=== PATIENT | female | born 1965 | race African-American/Black ===

== ENCOUNTER → 2017-02-16 | Outpatient (CLI) | payer BC ==
[~2017-02-16] MED LIST: HYDR25TA4 PO; MULT-506 PO; PXL/10 PO
== END | disposition home or self-care (01) ==
LOC: C.RDSM 09:11
PROVIDERS: ATTEND Family Medicine
DX: M25.562 Pain in left knee (principal)

== ENCOUNTER → 2017-05-23 | Outpatient (CLI) | payer BC ==
[~2017-05-23] MED LIST changes: -PXL/10 PO
--- NOTE | 2017-05-24 13:41 | MAMMOGRAPHY REPORT ---
BILATERAL DIGITAL SCREENING MAMMOGRAM TOMOSYNTHESIS WITH CAD: 05/23/2017 CLINICAL HISTORY: Routine screening. Patient has no complaints. TECHNIQUE: Breast tomosynthesis in addition to standard 2D mammography was performed. Current study was also evaluated with a Computer Aided Detection (CAD) system. COMPARISON: Comparison is made to exams dated: 12/08/2014 mammogram, 11/22/2011 mammogram, 11/08/2011 m ammogram - [facility], 12/24/2008, and 08/13/2004 mammogram - [facility]. BREAST COMPOSITION: The tissue of both breasts is heterogeneously dense, which may obscure small mas ses. FINDINGS: There is stable asymmetry in the lateral left breast. A few benign-appearing right breast microcalcifications. No suspicious mass, architectural distortion or cluster of suspicious microcalc ifications is seen. IMPRESSION: ACR BI-RADS CATEGORY 1: NEGATIVE There is no mammographic evidence of malignancy. A 1 year screening mammogram is recommended. The pa tient will receive written notification of the results. Approximately 10% of breast cancers are not detected with mammography. A negative mammographic report should not delay biopsy if a clinically suggestive mass is present. Loni Zarco M.D. ay/:05/23/2017 16:53:28 Truck Dispatcher: Merle CENTENO)(Anum)(BD), [facility] letter sent: Normal 1/2 BI-RADS Code: ACR BI-RADS Category 1: Negative
== END | disposition home or self-care (01) ==
LOC: C.MAMM 15:52
PROVIDERS: ATTEND Obstetrics & Gynecology
DX: Z12.31 Encounter for screening mammogram for malignant neoplasm of breast (principal)

== ENCOUNTER → 2017-08-10 | Outpatient (CLI) | payer BC ==
[2017-08-10 12:23] LABS: URINE APPEARANCE CLEAR (CLEAR); URINE BILIRUBIN NEG (NEG); URINE COLOR YELLOW; URINE NITRITE NEG (NEG); URINE PH 5.5 (4.5-7.5); URINE SPECIFIC GRAVITY 1.012 (1.000-1.030); UROBILINOGEN NEG (NEG)
[2017-08-10 12:34] LABS: MANUAL MICROSCOPIC REQUIRED? NO; REVIEW REQ? NO
== END | disposition home or self-care (01) ==
LOC: C.LAB1850 09:49
PROVIDERS: ATTEND Physician Assistant
DX: R35.0 Frequency of micturition (principal)

== ENCOUNTER 2024-04-26 12:11 | Inpatient (IN) ==
--- NOTE | 2024-04-26 13:19 | Emergency Department Note ---
ED Provider Note History of Present Illness Chief Complaint: Hip Pain Stated Complaint: HIP & LEG PAIN, Time Seen by Provider: 04/26/24 13:17 This is a 58-year-old female accompanied by her niece who presents to the emergency department via EMS with severe pain starting in her left buttock radiating down her leg. She feels like her leg is numb and she feels he is not getting enough blood supply. Patient states that she felt like she may have mildly injured this 3 weeks ago while doing some kickboxing exercises at home. She was having some mild discomfort especially in the mornings in her buttock area but nothing like she is experiencing today. Today when she woke up she had severe pain and could not move so called the ambulance. She took some ibuprofen without any relief. Patient states that her pain seems to get worse when she keeps her leg still and she feels an urge to move her leg. She cannot find a comfortable position. She states that the leg feels weak. She denies any loss of bowel or bladder function, saddle anesthesia, fever, chills. No history of any back problems or back surgery. No history of DVT. No abdominal pain or urinary symptoms. Home Medications Medication Instructions Recorded Confirmed Type Advil 1 tab PO UD PRN Pain 04/26/24 04/26/24 History Tylenol 1 tab PO UD PRN Pain 04/26/24 04/26/24 History Allergies Allergy/AdvReac Type Severity Reaction Status Date / Time No Known Allergies Allergy Unverified 04/26/24 16:19 Past Med/Surg History Problem List (Updated 04/26/24 @ 18:30 by MAGAN Izquierdo) Ambulatory dysfunction (Acute) Hypertension Hypokalemia (Acute) Lumbar back pain with radiculopathy affecting left lower extremity (Acute) Social History Smoking Status: Never smoker Feels Safe at Home: Yes Physical Exam Vital Signs Vital Signs - 24 hr 04/26/24 12:28 04/26/24 14:00 04/26/24 14:19 Temperature 97.9 F Temperature Source Skin Pulse Rate 73 68 Pulse Rate [Apical] 69 Pulse Rhythm Regular Respiratory Rate 16 18 18 Respiratory Effort / Characteristics Non-Labored Non-Labored Spontaneous Respiratory Depth Normal Normal Blood Pressure 168/108 H Blood Pressure [Left Arm] 187/107 H Blood Pressure Mean 128 Blood Pressure Mean [Left Arm] 133 Pulse Oximetry 96 100 100 Oxygen Delivery Method Room Air Room Air Room Air Sepsis Recent Fever Within 48 Hours No Sepsis New/Unexplained Change in Mental Status N/A Sepsis Action Taken by Nursing No Action Required CONSTITUTIONAL: Well developed, well nourished, appears to be in significant pain, writhing, cannot find a comfortable position, yelling in pain. NECK: Full active range of motion. RESPIRATORY: Breathing unlabored and symmetric. Lungs clear to auscultation bilaterally. No wheeze, rales, or rhonchi. CARDIOVASCULAR: Regular rate and rhythm. No murmurs, rubs, or gallops. DP pulses strong, 2+ bilaterally. ABDOMEN: Normal bowel sounds. Soft, nontender, no peritonitis. MUSCULOSKELETAL: Relatively unable to perform a thorough examination due to the patient writhing on the stretcher however there is no midline lumbar thoracic muscular tenderness. There is some mild tenderness in the left buttock musculature. Patient with severe pain with a straight leg raise on the left. There is no obvious swelling or skin color changes in the left leg compared to the contralateral. Palpation of the left medial leg elicits pain in the left buttock. SKIN: [place], warm, dry. Bilateral feet are warm and well-perfused. NEUROLOGIC: Awake, alert, oriented. No sensory deficits in bilateral lower extremities. Strength 5+ in bilateral lower extremities. Course Administered Medications Potassium Chloride (K Zaki / Wtr) 10 meq in 100 mls @ 100 mls/hr IV Q1H GLADIS Stop: 04/26/24 18:44 Last Admin: 04/26/24 18:00 Dose: 100 mls/hr Documented By: AY Discontinued Medications Dexamethasone Sodium Phosphate (DexamethasonePf 10 Mg/Ml Vial) 10 mg IV NOW ONE Stop: 04/26/24 13:29 Last Admin: 04/26/24 14:06 Dose: 10 mg Documented By: EVIE Diazepam (Diazepam 5 Mg/Ml 10ml Vial) 2 mg IV NOW STA Stop: 04/26/24 13:29 Last Admin: 04/26/24 14:06 Dose: 2 mg Documented By: EVIE Sodium Chloride (Nss) 1,000 mls @ 999 mls/hr IV .Q1H1M ONE Stop: 04/26/24 17:26 Last Admin: 04/26/24 18:01 Dose: 999 mls/hr Documented By: VALDEZ Ioversol (Optiray 320 100ml) 94 ml IV ONCE ONE Stop: 04/26/24 15:05 Last Admin: 04/26/24 15:04 Dose: 94 ml Documented By: OSITO Lidocaine (Lidocaine 5% 1 Patch) 1 patch TD NOW STA Stop: 04/26/24 13:29 Last Admin: 04/26/24 14:11 Dose: 1 patch Documented By: EVIE Morphine Sulfate (Morphine Sulfate 4 Mg/Ml 1 Ml Carp\Vial) 4 mg IV NOW STA Stop: 04/26/24 13:29 Last Admin: 04/26/24 14:06 Dose: 4 mg Documented By: EVIE Medical Decision Making Differential Diagnosis Lumbar strain, muscle spasm, myofascial pain, sciatica, disc bulge, disc herniation, radiculopathy, transverse myelitis, cauda equina syndrome, ureterolithiasis, vascular injury, DVT, among other pathology Laboratory Data 04/26/24 13:49 04/26/24 13:49 Lab Results 04/26/24 04/26/24 Range/Units 13:49 13:50 WBC 7.08 (4.8-10.8) K/ul RBC 5.79 H (4.20-5.40) M/uL Hgb 14.9 (12.0-16.0) g/dl Hct 44.4 (37.0-47.0) % MCV 76.7 L (80.0-100.0) fL MCH 25.7 (25.0-34.0) pg MCHC 33.6 (32.0-36.0) g/dL RDW Std Deviation 37.7 (36.4-46.3) fL RDW Coeff of Mary 13.8 (11.5-14.5) % Plt Count 246 (130-400) K/uL MPV 11.3 (9.4-12.4) fL Immature Gran % (Auto) 0.4 % Neut % (Auto) 84.8 % Lymph % (Auto) 10.9 % [place] % (Auto) 3.8 % Eos % (Auto) 0.0 % Baso % (Auto) 0.1 % Neut # (Auto) 6.00 (1.40-6.50) K/uL Lymph # (Auto) 0.77 L (1.20-3.40) K/uL [place] # (Auto) 0.27 (0.11-0.59) K/uL Eos # (Auto) 0.00 (0.00-0.50) K/uL Baso # (Auto) 0.01 (0.00-0.20) K/uL Immature Gran # (Auto) 0.03 (0.01-0.20) K/uL Sodium 136 (136-145) mmol/L Potassium 2.8 L (3.5-5.1) mmol/L Chloride 100 (98-107) mmol/L Carbon Dioxide 21 (21-32) mmol/L Anion Gap 15 H (3-11) BUN 13 (6-23) mg/dl Creatinine 0.79 (0.6-1.2) mg/dl Est Cr Clr Drug Dosing Not Reportable Est GFR ( Amer) 94.3 ml/min Est GFR (Non-Af Amer) 81.4 ml/min BUN/Creatinine Ratio 16.5 (10-20) Glucose 130 H (70-99(Fasting)) mg/dl Calcium 10.0 (8.6-10.3) mg/dl Magnesium 1.7 (1.7-2.4) mg/dl Total Bilirubin 0.6 (0.2-1.0) mg/dl AST 24 (13-39) U/L ALT 16 (7-52) U/L Alkaline Phosphatase 85 (34-104) U/L Total Protein 8.7 H (6.0-8.3) gm/dl Albumin 5.1 H (3.4-5.0) gm/dl Globulin 3.6 (2.5-4.0) gm/dl Albumin/Globulin Ratio 1.4 (0.9-2) Urine Color Yellow Urine Appearance Clear (Clear) Urine pH 8.0 H (4.5-7.5) Ur Specific [place] 1.016 (1.000-1.030) Urine Protein Trace H (Negative) Urine Glucose (UA) 2+ H (Negative) Urine Ketones 1+ H (Negative) Urine Blood Negative (Negative) Urine Nitrite Negative (Negative) Urine Bilirubin Negative (Negative) Urine Urobilinogen Negative (Negative) Ur Leukocyte Esterase Negative (Negative) Urine WBC (Auto) 0-5 (0-5) /hpf Urine RBC (Auto) 0-2 (0-2) /hpf U Hyaline Cast (Auto) 0-2 (0-2) /lpf U Epithel Cells (Auto) 0-2 (0-2) /hpf Urine Bacteria (Auto) None Seen (None Seen) Imaging Data Radiologist's Impression: Abdomen/Pelvis CT 04/26/24 13:30 CT abd pelvis IV con only CLINICAL HISTORY: severe left low back pain into leg TECHNIQUE: Helical axial images of the abdomen and pelvis were obtained and displayed. Automated dose lowering techniques and/or adjustment according to patient size were utilized for this exam. This exam was performed with intravenous contrast. COMPARISON: None available at the time of this dictation. FINDINGS: Lower chest: Bibasilar atelectasis versus scarring is seen. Liver: Hepatic cysts are seen. Gallbladder and biliary tree: No calcified gallstones. Normal caliber wall. No intra- or extrahepatic biliary ductal dilation. Pancreas: Unremarkable, no focal lesions. Spleen: Calcifications are noted in the spleen compatible with prior granulomatous disease. Adrenals: Unremarkable. Kidneys and ureters: Unremarkable. Bladder: Unremarkable. Reproductive organs: Patient is status post hysterectomy. Left adnexal cyst is seen. Bowel: The appendix is normal. Lymph nodes Retroperitoneal: Unremarkable. Pelvic: Unremarkable. Mesenteric: Unremarkable. Peritoneum: Normal. Vessels: Unremarkable. Abdominal wall: Unremarkable. Bones: Unremarkable. IMPRESSION: No acute abnormalities to explain lower back pain. ACT 112: Negative or not required by law. Electronically signed by: Mazin Ribeiro M.D. 04/26/2024 3:[address] 04/26/24 13:30 CT lumbar spine w con CT DOSE: 1080.53 mGy.cm CLINICAL HISTORY: severe left low back pain into leg TECHNIQUE: Multiaxial CT images of the lumbar spine were performed and reformatted in the sagittal and coronal plane following the intravenous administration of contrast. A dose lowering technique was utilized adhering to the principles of ALARA. COMPARISON STUDY: None. FINDINGS: No fracture or subluxation within the lumbar spine. Mild endplate spurring within the lumbar spine. Disc spaces are preserved for age. The visualized sacrum is intact. No high-grade central canal narrowing by CT technique. Mild facet degenerative changes within the lower lumbar spine. Paravertebral soft tissues are unremarkable. IMPRESSION: No fracture or subluxation within the lumbar spine. ACT 112: Negative or not required by law. Electronically signed by: Guru Mckee M.D. 04/26/2024 3:17 PM Venous Doppler Study 04/26/24 14:01 LEFT LOWER EXTREMITY VENOUS DOPPLER HISTORY: Left leg pain subjective swelling COMPARISON STUDY: None. FINDINGS: There is normal compressibility, flow, and augmentation within the left lower extremity deep venous system. IMPRESSION: No DVT within the left lower extremity. ACT 112: Negative or not required by law. Electronically signed by: Guru Mckee M.D. 04/26/2024 4:14 PM MDM Narrative This is a 58-year-old female who presents to the emergency department with severe left buttock pain radiating into the leg that started initially 3 weeks ago after kickboxing exercises, did not have much discomfort aside from the morning until yesterday/today when she developed severe pain and had to call EMS. See above for further details. Patient does appear to be in significant pain. She is yelling in pain and writhing around on the stretcher. She does calm down when I evaluate her and speak to her. She has some reproducible tenderness in the left buttock. She has strong pulses with no sensory deficits in bilateral lower extremities and good strength bilaterally. Her abdomen is benign.. Differential diagnosis considered above. An IV was inserted and labs were obtained. Patient was given morphine and Valium for pain and suspected muscle spasm as well as dexamethasone and a lidocaine patch. Labs: No leukocytosis or anemia. No thrombocytopenia. There is hypokalemia at 2.8, unclear of etiology however this certainly could contribute to muscle spasm. This was initially repleted in the ER with 20 mEq IV. Magnesium normal. Anion gap slightly elevated at 15. She did receive IV fluids. No transaminitis. Urine with 2+ glucose however no evidence of infection, no blood. CT abdomen pelvis with IV contrast as well as CT lumbar with IV contrast was ordered demonstrating no significant abnormalities to explain the patient's pain. Ultrasound negative for DVT. I reevaluated the patient at bedside. She was resting more comfortably however still did have a lot of pain. We attempted to ambulate her and she could barely walk. Case reviewed with ED attending Dr. Ramírez. Given this level of hypokalemia which is potentially a new finding coupled with intractable pain, patient will be admitted for observation. She is comfortable with this plan. Case discussed with [facility] hospitalist group and the patient will be admitted under Dr. Trevizo. Impression Lumbar back pain with radiculopathy affecting left lower extremity, Hypokalemia, Ambulatory dysfunction Discharge Plan Visit Data Chief Complaint: Hip Pain Stated Complaint: HIP & LEG PAIN, ED Provider: Mike Ramírez ED Midlevel Provider: Clayton Brower Discharge Problem: Lumbar back pain with radiculopathy affecting left lower extremity, Hypokalemia, Ambulatory dysfunction Patient Disposition: Admitted As Inpatient Forms Stand Alone Forms: My [facility] Prescriptions Prescriptions: No Action Advil 1 tab PO UD PRN (Reason: Pain) Rx Instructions: OTC, as directed. Unknown dose Tylenol 1 tab PO UD PRN (Reason: Pain) Rx Instructions: OTC, as directed. Unknown dose Referrals Referrals: PCP,NO [Physician] -
[2024-04-26] MEDS: diazePAM 5 MG/ML 10ML VIAL IV STA (14:06)
[2024-04-26] MEDS: MoRPHine SULFATE 4 MG/ML 1 ML CARP\\VIAL IV STA (14:06)
[2024-04-26] MEDS: dexAMETHasone**PF** 10 MG/ML VIAL IV ONE (14:06)
[2024-04-26 14:11] LABS: Basophils # (auto) 0.01 K/uL (0.00-0.20); Basophils % (auto) 0.1 %; Hematocrit (blood only) 44.4 % (37.0-47.0); Hemoglobin 14.9 g/dl (12.0-16.0); Immature Granulocytes # (auto) 0.03 K/uL (0.01-0.20); Immature Granulocytes % (auto) 0.4 %; Lymphocytes # (auto) 0.77 K/uL (1.20-3.40); Lymphocytes % (auto) 10.9 %; Mean Corpuscular Hemoglobin 25.7 pg (25.0-34.0); Mean Corpuscular Hgb Conc 33.6 g/dL (32.0-36.0); Mean Corpuscular Volume 76.7 fL (80.0-100.0); Mean Platelet Volume 11.3 fL (9.4-12.4); Monocytes # (auto) 0.27 K/uL (0.11-0.59); Monocytes % (auto) 3.8 %; Neutrophils % (auto) 84.8 %; Platelet Count 246 K/uL (130-400); RDW Coefficient of Variation 13.8 % (11.5-14.5); RDW Standard Deviation 37.7 fL (36.4-46.3); Red Blood Count 5.79 M/uL (4.20-5.40); White Blood Count 7.08 K/ul (4.8-10.8)
[2024-04-26] MEDS: LIDOCAINE 5% 1 PATCH TD STA (14:11)
[2024-04-26 14:12] LABS: Appearance Urine Clear (Clear); Bacteria Urine Automated None Seen (None Seen); Bilirubin Urine Negative (Negative); Blood Urine Negative (Negative); Cast Urine Automated 0-2 /lpf (0-2); Color Urine Yellow; Epithelial Cell Urine Auto 0-2 /hpf (0-2); Glucose Urine UA 2+ (Negative); Ketones Urine 1+ (Negative); Leukocyte Esterase Urine Negative (Negative); Nitrite Urine Negative (Negative); Protein Urine Trace (Negative); RBC Urine Automated 0-2 /hpf (0-2); Specific Gravity Urine 1.016 (1.000-1.030); Urobilinogen Urine Negative (Negative); WBC Urine Automated 0-5 /hpf (0-5)
[2024-04-26 14:30] LABS: Alanine Aminotransferase 16 U/L (7-52); Albumin Globulin Ratio 1.4 (0.9-2); Albumin Level 5.1 gm/dl (3.4-5.0); Alkaline Phosphatase 85 U/L (34-104); Anion Gap 15 (3-11); Aspartate Aminotransferase 24 U/L (13-39); BUN Creatinine Ratio 16.5 (10-20); Bilirubin,Total 0.6 mg/dl (0.2-1.0); Blood Urea Nitrogen 13 mg/dl (6-23); Carbon Dioxide 21 mmol/L (21-32); Chloride 100 mmol/L (98-107); Est GFR (African American) 94.3 ml/min; Est GFR (Non-African American) 81.4 ml/min; Globulin 3.6 gm/dl (2.5-4.0); Glucose 130 mg/dl (70-99(Fasting)); Potassium 2.8 mmol/L (3.5-5.1); Sodium 136 mmol/L (136-145); Total Protein 8.7 gm/dl (6.0-8.3)
[2024-04-26] MEDS: OPTIRAY 320 100ml IV ONE (15:04)
--- NOTE | 2024-04-26 15:19 | CT Scan Report ---
CT lumbar spine w con CT DOSE: 1080.53 mGy.cm CLINICAL HISTORY: severe left low back pain into leg TECHNIQUE: Multiaxial CT images of the lumbar spine were performed and reformatted in the sagittal an d coronal plane following the intravenous administration of contrast. A dose lowering technique was utilized adhering to the principles of ALARA. COMPARISON STUDY: None. FINDINGS: No fracture or subluxation within the lumbar spine. Mild endplate spurring within the lumba r spine. Disc spaces are preserved for age. The visualized sacrum is intact. No high-grade central ca nal narrowing by CT technique. Mild facet degenerative changes within the lower lumbar spine. Paraver tebral soft tissues are unremarkable. IMPRESSION: No fracture or subluxation within the lumbar spine. ACT 112: Negative or not required by law. Electronically signed by: Guru Mckee M.D. 04/26/2024 3:17 PM
--- NOTE | 2024-04-26 15:31 | CT Scan Report ---
CT abd pelvis IV con only CLINICAL HISTORY: severe left low back pain into leg TECHNIQUE: Helical axial images of the abdomen and pelvis were obtained and displayed. Automated dose lowering techniques and/or adjustment according to patient size were utilized for this exam. This e xam was performed with intravenous contrast. COMPARISON: None available at the time of this dictation. FINDINGS: Lower chest: Bibasilar atelectasis versus scarring is seen. Liver: Hepatic cysts are seen. Gallbladder and biliary tree: No calcified gallstones. Normal caliber wall. No intra- or extrahepatic biliary ductal dilation. Pancreas: Unremarkable, no focal lesions. Spleen: Calcifications are noted in the spleen compatible with prior granulomatous disease. Adrenals: Unremarkable. Kidneys and ureters: Unremarkable. Bladder: Unremarkable. Reproductive organs: Patient is status post hysterectomy. Left adnexal cyst is seen. Bowel: The appendix is normal. Lymph nodes Retroperitoneal: Unremarkable. Pelvic: Unremarkable. Mesenteric: Unremarkable. Peritoneum: Normal. Vessels: Unremarkable. Abdominal wall: Unremarkable. Bones: Unremarkable. IMPRESSION: No acute abnormalities to explain lower back pain. ACT 112: Negative or not required by law. Electronically signed by: Mazin Ribeiro M.D. 04/26/2024 3:30 PM
--- NOTE | 2024-04-26 16:16 | Ultrasound Report ---
LEFT LOWER EXTREMITY VENOUS DOPPLER HISTORY: Left leg pain subjective swelling COMPARISON STUDY: None. FINDINGS: There is normal compressibility, flow, and augmentation within the left lower extremity brooke p venous system. IMPRESSION: No DVT within the left lower extremity. ACT 112: Negative or not required by law. Electronically signed by: Guru Mckee M.D. 04/26/2024 4:14 PM
[2024-04-26 17:01] LABS: Magnesium 1.7 mg/dl (1.7-2.4)
[2024-04-26] MEDS: POTASSIUM CHLORIDE / WTR 10 MEQ/100 ML PLCT IV SCH (18:00)
[2024-04-26] MEDS: SODIUM CHLORIDE 0.9% 1,000 ML IV ONE (18:01)
--- NOTE | 2024-04-26 18:17 | History & Physical Report ---
Date of Service April 26, 2024 Assessment & Plan (1) Lumbar back pain with radiculopathy affecting left lower extremity: Plan: This was most likely due to kickboxing after being relatively out of shape for several years. She was given IV Decadron, IV morphine, IV Valium without any significant relief Will admit her due to intractable pain I will start her on p.o. prednisone tomorrow 60 mg Today I will treat her with Toradol IV every 6 as needed I will consult PT and OT CT abdomen pelvis, CT lumbar spine were negative (2) Hypokalemia: Plan: Potassium was 2.8 on admission I will recheck as this is unlikely that her potassium was truly low If repeat potassium is low, will replete She was given 20 mg of IV potassium in the emergency room (3) Hypertension: Plan: This is most likely pain induced Will treat the pain with Toradol (4) Ambulatory dysfunction: Plan: Mobility is restricted due to pain Will treat the pain Consult PT and OT Plan Full code Lovenox for DVT prophylaxis History of Present Illness Chief Complaint: Left buttock pain radiating to left leg Primary Care Provider: Sanket Caro MD This is a 58-year-old -[place] female who presented with the above chief complaint. The patient has no known past medical history. She says that she sees a PCP regularly. Recently she was thought to have thyroid cancer but it was ruled out. She is otherwise fairly healthy. 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 She tried some kickboxing 3 weeks ago and thought that she might have injured herself. She noticed that it was hard for her to pick something up from the ground. She then saw a physical therapist and had some maneuvering done and was feeling a little bit better. However over the past 1 week, it started to get worse and she started to have sensation of numbness and burning along her left leg. This morning, she had severe pain for which she could not even walk. Thus she presented to the emergency room. She was given IV Decadron, IV morphine, IV Valium in the emergency room with no significant relief. She is still not able to ambulate. Moreover, her blood work showed low potassium of 2.8. I was thus asked to admit this patient to treat her pain, ambulatory dysfunction and hypokalemia. The patient denies any fever or chills. Denies chest pain or shortness of breath. Denies dizziness. She is quite surprised that her potassium was low. She says that she has blood work done regularly by her PCP and was never reported any issues with her electrolytes. Allergies Allergy/AdvReac Type Severity Reaction Status Date / Time No Known Allergies Allergy Unverified 04/26/24 16:19 Home Medications Medication Instructions Recorded Confirmed Type Advil 1 tab PO UD PRN Pain 04/26/24 04/26/24 History Tylenol 1 tab PO UD PRN Pain 04/26/24 04/26/24 History Past Med/Surg History Problem List (Updated 04/26/24 @ 18:13 by Ellen Trevizo MD) Ambulatory dysfunction Hypertension Hypokalemia Lumbar back pain with radiculopathy affecting left lower extremity Social History Smoking Status: Never smoker Feels Safe at Home: Yes Review of Systems Review of Systems: All systems reviewed & are unremarkable except as noted in HPI & below Physical Exam Physical Exam: General appearance: Awake, conversant, able to answer questions appropriately. AOx3. Pupils: Equally reactive to light and accommodation Neck: No masses, no thyromegaly Respiration: Clear to auscultation bilaterally. Normal effort Cardiovascular: S1-S2/regular rate and rhythm. No murmur, rubs or gallop. No edema. Abdomen: Soft, nontender, nondistended. No hepatosplenomegaly Musculoskeletal: No clubbing, no cyanosis. She looks uncomfortable because of pain in the left buttock. She was not able to do a straight leg raise on the left side. Skin: No rashes, no nodules Neuro exam: Cranial nerves intact, sensation grossly intact Psychiatric: Patient has good judgment and insight. AOx3. Mood and affect appear normal Lymphatics: No cervical or axillary lymphadenopathy noted Results & Data Results & Data Vital Signs (Past 12 Hours) Vital Signs Temp Pulse Pulse Resp BP BP Pulse Ox 04/26/24 14:19 68 18 100 04/26/24 14:00 69 18 187/107 H 100 04/26/24 12:28 36.6 C 73 16 168/108 H 96 O2 Del Method 04/26/24 14:19 Room Air 04/26/24 14:00 Room Air 04/26/24 12:28 Room Air Laboratory Results Abnormal lab results 04/26/24 04/26/24 Range/Units 13:49 13:50 RBC 5.79 H (4.20-5.40) M/uL MCV 76.7 L (80.0-100.0) fL Lymph # (Auto) 0.77 L (1.20-3.40) K/uL Potassium 2.8 L (3.5-5.1) mmol/L Anion Gap 15 H (3-11) Glucose 130 H (70-99(Fasting)) mg/dl Total Protein 8.7 H (6.0-8.3) gm/dl Albumin 5.1 H (3.4-5.0) gm/dl Urine pH 8.0 H (4.5-7.5) Urine Protein Trace H (Negative) Urine Glucose (UA) 2+ H (Negative) Urine Ketones 1+ H (Negative) Diagnostic Findings Abdomen/Pelvis CT 04/26/24 13:30 CT abd pelvis IV con only CLINICAL HISTORY: severe left low back pain into leg TECHNIQUE: Helical axial images of the abdomen and pelvis were obtained and displayed. Automated dose lowering techniques and/or adjustment according to patient size were utilized for this exam. This exam was performed with intravenous contrast. COMPARISON: None available at the time of this dictation. FINDINGS: Lower chest: Bibasilar atelectasis versus scarring is seen. Liver: Hepatic cysts are seen. Gallbladder and biliary tree: No calcified gallstones. Normal caliber wall. No intra- or extrahepatic biliary ductal dilation. Pancreas: Unremarkable, no focal lesions. Spleen: Calcifications are noted in the spleen compatible with prior granulomatous disease. Adrenals: Unremarkable. Kidneys and ureters: Unremarkable. Bladder: Unremarkable. Reproductive organs: Patient is status post hysterectomy. Left adnexal cyst is seen. Bowel: The appendix is normal. Lymph nodes Retroperitoneal: Unremarkable. Pelvic: Unremarkable. Mesenteric: Unremarkable. Peritoneum: Normal. Vessels: Unremarkable. Abdominal wall: Unremarkable. Bones: Unremarkable. IMPRESSION: No acute abnormalities to explain lower back pain. ACT 112: Negative or not required by law. Electronically signed by: Mazin Ribeiro M.D. 04/26/2024 3:[address] 04/26/24 13:30 CT lumbar spine w con CT DOSE: 1080.53 mGy.cm CLINICAL HISTORY: severe left low back pain into leg TECHNIQUE: Multiaxial CT images of the lumbar spine were performed and reformatted in the sagittal and coronal plane following the intravenous administration of contrast. A dose lowering technique was utilized adhering to the principles of ALARA. COMPARISON STUDY: None. FINDINGS: No fracture or subluxation within the lumbar spine. Mild endplate spurring within the lumbar spine. Disc spaces are preserved for age. The visualized sacrum is intact. No high-grade central canal narrowing by CT technique. Mild facet degenerative changes within the lower lumbar spine. Paravertebral soft tissues are unremarkable. IMPRESSION: No fracture or subluxation within the lumbar spine. ACT 112: Negative or not required by law. Electronically signed by: Guru Mckee M.D. 04/26/2024 3:17 PM Venous Doppler Study 04/26/24 14:01 LEFT LOWER EXTREMITY VENOUS DOPPLER HISTORY: Left leg pain subjective swelling COMPARISON STUDY: None. FINDINGS: There is normal compressibility, flow, and augmentation within the left lower extremity deep venous system. IMPRESSION: No DVT within the left lower extremity. ACT 112: Negative or not required by law. Electronically signed by: Guru Mckee M.D. 04/26/2024 4:14 PM Code Status & VTE Plan VTE Prophylaxis Plan VTE Prophylaxis will be ordered: Yes PG Care Time/CCT Total # of Minutes Spent Total Time Spent with Patient: Total time spent is greater than 50% in coordination of care (as documented) at patient's floor/unit and/or counseling patient: Coding Level of Care Code 84230 INT INP/OBS CARE 2/55MIN Diagnoses Lumbar back pain with radiculopathy affecting left lower extremity M54.16 Hypokalemia E87.6 Hypertension I10 Ambulatory dysfunction R26.2
[2024-04-26] MEDS: KETOROLAC 30 MG/ML VIAL IV ONE ×2 (19:01→19:09)
[2024-04-26 19:57] LABS: Anion Gap 11 (3-11); BUN Creatinine Ratio 14.1 (10-20); Blood Urea Nitrogen 11 mg/dl (6-23); Calcium 9.7 mg/dl (8.6-10.3); Carbon Dioxide 23 mmol/L (21-32); Chloride 102 mmol/L (98-107); Est GFR (African American) 95.8 ml/min; Est GFR (Non-African American) 82.6 ml/min; Glucose 137 mg/dl (70-99(Fasting)); Potassium 3.4 mmol/L (3.5-5.1); Sodium 136 mmol/L (136-145)
[2024-04-26] MEDS: MoRPHine SULFATE 2 MG/ML CARP IV ONE (21:14)
[2024-04-26] MEDS ORDERED: ONDANSETRON INJ 2 MG/ML 2 ML VIAL IV PRN (21:32)
[2024-04-26] MEDS ORDERED: MAGNESIUM HYDROXIDE SUSP 30 ML UDC PO PRN (21:32)
[2024-04-26] MEDS ORDERED: ALUMINUM/MAGNESIUM SUSP 30 ML UDC PO PRN (21:32)
[2024-04-27] MEDS: POTASSIUM CHLORIDE / WTR 10 MEQ/100 ML PLCT IV ONE (06:03)
[2024-04-27] MEDS: ACETAMINOPHEN 325 MG TAB PO PRN (07:15)
[2024-04-27] MEDS: KETOROLAC 30 MG/ML VIAL IV PRN (07:25)
[2024-04-27] MEDS: ENOXAPARIN INJ 40 MG/0.4 ML SYR SQ SCH (08:05)
[2024-04-27] MEDS: predniSONE 20 MG TAB PO SCH (08:07)
[2024-04-27 08:16] LABS: BUN Creatinine Ratio 16.9 (10-20); Calcium 9.5 mg/dl (8.6-10.3); Creatinine Clr Calc Pharmacy 72.7 ml/min; Est GFR (African American) 88.8 ml/min; Est GFR (Non-African American) 76.6 ml/min; Potassium 3.7 mmol/L (3.5-5.1)
--- NOTE | 2024-04-27 13:44 | Hospitalist Progress Note ---
Date of Service April 27, 2024 Assessment & Plan (1) Lumbar back pain with radiculopathy affecting left lower extremity: Plan: This was most likely due to kickboxing after being relatively out of shape for several years. She was given IV Decadron, IV morphine, IV Valium without any significant relief Currently on p.o. prednisone 60 mg daily Toradol IV every 6 as needed PT/OT on board Patient has been advised to stay active. CT abdomen pelvis, CT lumbar spine were negative (2) Hypokalemia: Plan: Repleted (3) Hypertension: Plan: This is most likely pain induced Will treat the pain with Toradol (4) Ambulatory dysfunction: Plan: Mobility is restricted due to pain Will treat the pain Consult PT and OT Plan Full code Lovenox for DVT prophylaxis Admission and Anticipated Discharge Date Admission Date: April 26, 2024 Subjective Patient is still complaining of pain in the left buttock moving down her left leg. Denies chest pain or shortness of breath. Review of Systems Review of Systems: All systems reviewed & are unremarkable except as noted in Subjective Physical Exam Physical Exam: General: Awake, conversant Heart: S1, S2/regular rate and rhythm, no murmur rubs or gallops Lungs: Clear to auscultation bilaterally. Normal effort Abdomen: Soft/nontender/nondistended. No hepatosplenomegaly Extremities: No clubbing/cyanosis. No edema Behavior: Appropriate, cooperative Results & Data Results & Data Vital Signs (Past 12 Hours) Vital Signs Temp Pulse Resp BP BP Pulse Ox O2 Del Method 04/27/24 07:10 Room Air 04/27/24 07:00 37.1 C 82 16 159/92 H 97 Room Air 04/27/24 05:21 89 155/93 H Laboratory Results Abnormal lab results 04/26/24 04/26/24 04/26/24 Range/Units 13:49 13:50 19:16 RBC 5.79 H (4.20-5.40) M/uL MCV 76.7 L (80.0-100.0) fL Lymph # (Auto) 0.77 L (1.20-3.40) K/uL Potassium 2.8 L 3.4 L D (3.5-5.1) mmol/L Anion Gap 15 H (3-11) Glucose 130 H 137 H (70-99(Fasting)) mg/dl Total Protein 8.7 H (6.0-8.3) gm/dl Albumin 5.1 H (3.4-5.0) gm/dl Urine pH 8.0 H (4.5-7.5) Urine Protein Trace H (Negative) Urine Glucose (UA) 2+ H (Negative) Urine Ketones 1+ H (Negative) 04/27/24 Range/Units 07:42 RBC (4.20-5.40) M/uL MCV (80.0-100.0) fL Lymph # (Auto) (1.20-3.40) K/uL Potassium (3.5-5.1) mmol/L Anion Gap (3-11) Glucose 142 H (70-99(Fasting)) mg/dl Total Protein (6.0-8.3) gm/dl Albumin (3.4-5.0) gm/dl Urine pH (4.5-7.5) Urine Protein (Negative) Urine Glucose (UA) (Negative) Urine Ketones (Negative) Diagnostic Findings Abdomen/Pelvis CT 04/26/24 13:30 CT abd pelvis IV con only CLINICAL HISTORY: severe left low back pain into leg TECHNIQUE: Helical axial images of the abdomen and pelvis were obtained and displayed. Automated dose lowering techniques and/or adjustment according to patient size were utilized for this exam. This exam was performed with intravenous contrast. COMPARISON: None available at the time of this dictation. FINDINGS: Lower chest: Bibasilar atelectasis versus scarring is seen. Liver: Hepatic cysts are seen. Gallbladder and biliary tree: No calcified gallstones. Normal caliber wall. No intra- or extrahepatic biliary ductal dilation. Pancreas: Unremarkable, no focal lesions. Spleen: Calcifications are noted in the spleen compatible with prior granulomatous disease. Adrenals: Unremarkable. Kidneys and ureters: Unremarkable. Bladder: Unremarkable. Reproductive organs: Patient is status post hysterectomy. Left adnexal cyst is seen. Bowel: The appendix is normal. Lymph nodes Retroperitoneal: Unremarkable. Pelvic: Unremarkable. Mesenteric: Unremarkable. Peritoneum: Normal. Vessels: Unremarkable. Abdominal wall: Unremarkable. Bones: Unremarkable. IMPRESSION: No acute abnormalities to explain lower back pain. ACT 112: Negative or not required by law. Electronically signed by: Mazin Ribeiro M.D. 04/26/2024 3:[address] 04/26/24 13:30 CT lumbar spine w con CT DOSE: 1080.53 mGy.cm CLINICAL HISTORY: severe left low back pain into leg TECHNIQUE: Multiaxial CT images of the lumbar spine were performed and reformatted in the sagittal and coronal plane following the intravenous administration of contrast. A dose lowering technique was utilized adhering to the principles of ALARA. COMPARISON STUDY: None. FINDINGS: No fracture or subluxation within the lumbar spine. Mild endplate spurring within the lumbar spine. Disc spaces are preserved for age. The visualized sacrum is intact. No high-grade central canal narrowing by CT technique. Mild facet degenerative changes within the lower lumbar spine. Paravertebral soft tissues are unremarkable. IMPRESSION: No fracture or subluxation within the lumbar spine. ACT 112: Negative or not required by law. Electronically signed by: Guru Mckee M.D. 04/26/2024 3:17 PM Venous Doppler Study 04/26/24 14:01 LEFT LOWER EXTREMITY VENOUS DOPPLER HISTORY: Left leg pain subjective swelling COMPARISON STUDY: None. FINDINGS: There is normal compressibility, flow, and augmentation within the left lower extremity deep venous system. IMPRESSION: No DVT within the left lower extremity. ACT 112: Negative or not required by law. Electronically signed by: Guru Mckee M.D. 04/26/2024 4:14 PM PG Care Time/CCT Total # of Minutes Spent Total Time Spent with Patient: Total time spent is greater than 50% in coordination of care (as documented) at patient's floor/unit and/or counseling patient: Coding Level of Care Code 71060 SUB INP/OBS CARE 2/35MIN Diagnoses Lumbar back pain with radiculopathy affecting left lower extremity M54.16 Hypokalemia E87.6 Hypertension I10 Ambulatory dysfunction R26.2
[2024-04-27] MEDS: BACLOFEN 10 MG TAB PO SCH (20:21)
[2024-04-28] MEDS: BACLOFEN 10 MG TAB PO SCH (08:49)
[2024-04-28] MEDS: CYCLOBENZAPRINE HCL 10 MG TAB PO SCH (10:54)
[2024-04-28] MEDS: HYDROmorphone INJ 1 MG/ML SYRINGE IV STA (14:39)
[2024-04-28] MEDS: LORazepam 0.5 MG in SYRINGE 0.25 ML IV ONE (14:40)
--- NOTE | 2024-04-28 15:57 | Hospitalist Progress Note ---
Date of Service April 28, 2024 Assessment & Plan (1) Lumbar back pain with radiculopathy affecting left lower extremity: Plan: This was most likely due to kickboxing after being relatively out of shape for several years. She was given IV Decadron, IV morphine, IV Valium without any significant relief Currently on p.o. prednisone 60 mg daily Toradol IV every 6 as needed Flexeril ordered Offered heating pad PT/OT on board CT abdomen pelvis, CT lumbar spine were negative To rule out muscle tears, ordered MRI of left hip and left femur stat. However the patient could not straighten her leg due to pain. Offered to order IV Dilaudid and IV Ativan in order to get the MRI done. However, the patient thinks that she got too many medications today and does not wish to get any more. She would like to try to do the MRI tomorrow. Patient is well aware that a diagnosis can be delayed but she does not want any more pain medications today. (2) Hypokalemia: Plan: Repleted (3) Hypertension: Plan: This is most likely pain induced Will treat the pain with Toradol The patient does not want any more morphine Ordered hydralazine IV as needed (4) Ambulatory dysfunction: Plan: Mobility is restricted due to pain Will treat the pain PT/OT on board Plan Full code Lovenox for DVT prophylaxis Admission and Anticipated Discharge Date Admission Date: April 26, 2024 Subjective Patient continues to be in significant pain. Noticed that her blood pressure has been elevated because of the pain. She was ordered baclofen last night which she thinks made the pain worse. She did not use the baclofen this morning. She has used Flexeril in the past and has tolerated it well. Ordered Flexeril today. Review of Systems Review of Systems: All systems reviewed & are unremarkable except as noted in Subjective Physical Exam Physical Exam: General: Awake, conversant Heart: S1, S2/regular rate and rhythm, no murmur rubs or gallops Lungs: Clear to auscultation bilaterally. Normal effort Abdomen: Soft/nontender/nondistended. No hepatosplenomegaly Extremities: No clubbing/cyanosis. No edema Behavior: Appropriate, cooperative Results & Data Results & Data Vital Signs (Past 12 Hours) Vital Signs Temp Pulse Resp BP BP Pulse Ox O2 Del Method 04/28/24 15:37 36.8 C 98 H 18 153/110 H 96 Room Air 04/28/24 07:30 Room Air 04/28/24 07:10 36.3 C L 73 16 165/100 H 100 Room Air PG Care Time/CCT Total # of Minutes Spent Total Time Spent with Patient: Total time spent is greater than 50% in coordination of care (as documented) at patient's floor/unit and/or counseling patient: Coding Level of Care Code 99657 SUB INP/OBS CARE 2/35MIN Diagnoses Lumbar back pain with radiculopathy affecting left lower extremity M54.16 Hypokalemia E87.6 Hypertension I10 Ambulatory dysfunction R26.2
[2024-04-28] MEDS: hydrALAZINE HCL 20 MG/ML VIAL IV PRN (16:07)
--- NOTE | 2024-04-29 13:54 | Hospitalist Progress Note ---
Date of Service April 29, 2024 Assessment & Plan (1) Lumbar back pain with radiculopathy affecting left lower extremity: Plan: This was most likely due to kickboxing after being relatively out of shape for several years. She was given IV Decadron, IV morphine, IV Valium without any significant relief Currently on p.o. prednisone 60 mg daily Toradol IV every 6 as needed. Check BMP in a.m. 7/20 Flexeril ordered Offered heating pad PT/OT on board CT abdomen pelvis, CT lumbar spine were negative To rule out muscle tears, ordered MRI of left hip and left femur stat. However the patient could not straighten her leg due to pain. Offered to order IV Dilaudid and IV Ativan in order to get the MRI done. However, the patient thought that she got "too medicated" and did not wish to get any more. She is willing to try the MRI today. She is willing to take Ativan IV and not Dilaudid. (2) Hypokalemia: Plan: Repleted (3) Hypertension: Plan: This is most likely pain induced and anxiety induced Will treat the pain with Toradol The patient does not want any more morphine Ordered hydralazine IV as needed (4) Ambulatory dysfunction: Plan: Mobility is restricted due to pain Will treat the pain PT/OT on board Plan Full code Lovenox for DVT prophylaxis Admission and Anticipated Discharge Date Admission Date: April 26, 2024 Subjective Patient says that her pain is a little bit better today. However, the nurse called me this morning because of fast heart rate. The patient is quite an xious. By the time an EKG was done, her heart rate was down. Yesterday, we try to get an MRI done. The patient could not straighten her leg because of pain and thus the MRI could not be done. She is very skeptical about getting medications. She thinks that she has been getting too much medications already and did not want the Dilaudid and Ativan that I ordered to get the MRI done. I can tell that the patient is extremely anxious. Review of Systems Review of Systems: All systems reviewed & are unremarkable except as noted in Subjective Physical Exam Physical Exam: General: Awake, conversant, anxious appearing Heart: S1, S2/regular rate and rhythm, no murmur rubs or gallops Lungs: Clear to auscultation bilaterally. Normal effort Abdomen: Soft/nontender/nondistended. No hepatosplenomegaly Extremities: No clubbing/cyanosis. No edema Behavior: Appropriate, cooperative Results & Data Results & Data Vital Signs (Past 12 Hours) Vital Signs Temp Pulse Resp BP Pulse Ox O2 Del Method 04/29/24 08:09 111 H 18 137/89 98 Room Air 04/29/24 07:06 36.8 C 104 H 20 155/108 H 97 Room Air 04/29/24 05:52 59 L 145/91 H PG Care Time/CCT Total # of Minutes Spent Total Time Spent with Patient: Total time spent is greater than 50% in coordination of care (as documented) at patient's floor/unit and/or counseling patient: Coding Level of Care Code 99623 SUB INP/OBS CARE 2/35MIN Diagnoses Lumbar back pain with radiculopathy affecting left lower extremity M54.16 Hypokalemia E87.6 Hypertension I10 Ambulatory dysfunction R26.2
--- NOTE | 2024-04-29 16:06 | Electrocardiogram Report ---
Test Reason : Blood Pressure : / mmHG Vent. Rate : 089 BPM Atrial Rate : 089 BPM P-R Int : 188 ms QRS Dur : 080 ms QT Int : 362 ms P-R-T Axes : 072 -27 -14 degrees QTc Int : 440 ms Normal sinus rhythm Minimal voltage criteria for LVH, may be normal variant Poor R wave progression, consider anterior ME vs. lead placement vs. LVH Abnormal ECG When compared with ECG of 21-FEB-2019 08:42, T wave inversion no longer evident in Anterolateral leads Confirmed by Sandip Vega ([id number]) on 04/29/2024 4:05:53 PM Referred By: REFERRED SELF Confirmed By:Jeffery Vega
[2024-04-29] MEDS: LORazepam 0.5 MG in SYRINGE 0.25 ML IV PRN (22:42)
[2024-04-30 08:30] LABS: BUN Creatinine Ratio 17.6 (10-20); Creatinine Clr Calc Pharmacy 59.1 ml/min; Est GFR (African American) 69.2 ml/min; Est GFR (Non-African American) 59.7 ml/min; Potassium 3.3 mmol/L (3.5-5.1)
[2024-04-30] MEDS: POTASSIUM CHLORIDE CRTAB 20 MEQ TABCR PO STA (09:26)
--- NOTE | 2024-04-30 11:46 | Discharge Summary ---
Date of Service April 30, 2024 Admission HPI Per Admitting Provider This is a 58-year-old -[place] female who presented with the above chief complaint. The patient has no known past medical history. She says that she sees a PCP regularly. Recently she was thought to have thyroid cancer but it was ruled out. She is otherwise fairly healthy. 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 She tried some kickboxing 3 weeks ago and thought that she might have injured herself. She noticed that it was hard for her to pick something up from the ground. She then saw a physical therapist and had some maneuvering done and was feeling a little bit better. However over the past 1 week, it started to get worse and she started to have sensation of numbness and burning along her left leg. This morning, she had severe pain for which she could not even walk. Thus she presented to the emergency room. She was given IV Decadron, IV morphine, IV Valium in the emergency room with no significant relief. She is still not able to ambulate. Moreover, her blood work showed low potassium of 2.8. I was thus asked to admit this patient to treat her pain, ambulatory dysfunction and hypokalemia. The patient denies any fever or chills. Denies chest pain or shortness of breath. Denies dizziness. She is quite surprised that her potassium was low. She says that she has blood work done regularly by her PCP and was never repor leslie any issues with her electrolytes. Principal Diagnosis left leg pain/spasm, ambulatory dysfunction Discharge Exam General-alert and oriented x3, no fever, no chills HEENT-head atraumatic and normocephalic, pupils equal and reactive to light, extraocular muscles intact Neck-no lymphadenopathy or thyromegaly, trachea midline Chest-clear to auscultation. No rales, wheezing or rhonchi Cardiac-regular rate and rhythm, normal S1 and S2 Abdomen-normal bowel sounds, no hepatosplenomegaly Extremities-no cyanosis, clubbing, or edema. Tenderness to palpation left posterior thigh area Neuro-cranial nerves II through XII intact, motor and sensory function within normal limits, strength symmetrical, no focal deficits Psych-normal affect, normal mood Discharge Data Allergies Allergy/AdvReac Type Severity Reaction Status Date / Time No Known Drug Allergies Allergy Verified 04/29/24 07:39 Consultations 04/26/24 17:05 ED Decision to Admit Stat Ordered Studies 04/26/24 13:30 CT Abd and Pelvis [CT abd pelvis IV con only] Stat CT lumbar spine w con Stat 04/26/24 14:01 US leg [US venous doppler LE LT] Stat 04/28/24 10:44 MRI Hip [MR hip LT wo con] Stat MRI Leg [MR femur LT wo con] Stat Hospital Course (1) Lumbar back pain with radiculopathy affecting left lower extremity: This was most likely due to kickboxing after being relatively out of shape for several years. She may have suffered a left leg muscular hamstring injury. Unfortunately, she cannot straighten out her leg enough to undergo MRI scanning. She is using Flexeril as needed for muscle spasms. She was also treated with oral prednisone and will remain on a prednisone tapering dose at discharge. (2) Hypokalemia: Continue oral replacement (3) Hypertension: Present on admission. Now resolved (4) Ambulatory dysfunction: At discharge a prescription was provided for a wheeled walker and also outpatient PT Plan Home today, April 30 Total Time Total Time Spent Total Time Spent (In Minutes): 45-minute Discharge Plan Discharge Items Patient Disposition: Home - Self-Care Reason For Visit: L BUTTOCK PAIN, L LEG PAIN Discharge Diagnosis: Suspected left leg hamstring injury, left leg pain, hypokalemia Activity: Resume your previous activity Non-emergency contact: Primary Care Provider Call non-emergency contact if: you have any medication questions and your symptoms worsen Follow-up/Referrals: Sanket Caro MD [Primary Care Provider] - Diet: Regular Addtl Attending Provider Instructions: Use a wheeled walker for ambulation and attend outpatient physical therapy as indicated. Take Flexeril as needed for muscle spasms. Take prednisone in a tapering dose fashion as directed Pending Studies at Discharge: No Stand-Alone Forms: My [employer], Smoking Cessation Medications and DC Order Prescriptions: New prednisone 10 mg tablet See Rx Instructions .ROUTE .COMPLEX Qty: 12 0RF Rx Instructions: 10 mg orally 3 times a day for 2 days, then 10 mg twice a day for 2 days, then 10 mg once a day for 2 days, then stop cyclobenzaprine 10 mg tablet 10 mg PO Q8H PRN (Reason: muscle spasm) Qty: 14 0RF Continued Tylenol 1 tab PO UD PRN (Reason: Pain) Rx Instructions: OTC, as directed. Unknown dose Discontinued Advil 1 tab PO UD PRN (Reason: Pain) Rx Instructions: OTC, as directed. Unknown dose No Action No Known Home Medications Discharge Orders: Discharge Order (Routine); Ordered 04/30/24 Ordered By: Reyes Beckford Admission Data Admit Date/Time: 04/26/24 18:01 Attending Provider: Reyes Beckford Admit Provider: Ellen Trevizo Primary Care Provider: Sanket Caro V. Other Providers: Ellen Trevizo Coding Level of Care Code 22899 INP/OBS DISCH >30 MIN Diagnoses Lumbar back pain with radiculopathy affecting left lower extremity M54.16 Hypokalemia E87.6 Hypertension I10 Ambulatory dysfunction R26.2
== END 2024-04-30 13:51 | disposition home or self-care (01) | DRG 552 ==
LOC: SUATTDRO → ED 12:11 → MERGE 18:01 → SUATTDRO 18:01 → 3N 18:01